=== PATIENT | female | born 1990 | race African-American/Black ===

== ENCOUNTER 2018-03-07 15:25 | Inpatient (IN) | payer OTHER ==
[2018-03-07] MEDS ORDERED: BUTORPHANOL TARTRATE 1 MG/ML VIAL IVPB ONE (16:30)
[2018-03-07] MEDS ORDERED: DEXTROSE 5%-LACTATED RINGERS 1,000 ML IV SCH (16:30)
[2018-03-07] MEDS ORDERED: PROMETHAZINE HCL 25 MG/1 ML VIAL IVPUSH ONE (16:30)
[2018-03-07] MEDS ORDERED: SODIUM PHOSPHATE/NA BIPHOS 133 ML ENEMA PR ONE (16:30)
--- NOTE | 2018-03-07 16:38 | HP ---
Past Medical History - Primary Care Physician PCP:: Roula Arndt - Admission Chief Complaint: 27 yrs , 40.3/7 weeks , onset LP since 2.00 PM . pt c/ o backache bothersome. she is broughtby ambulence . History of Present Illness: pNC at2, [facility] pt had wt loss in the beginning from 236 to 226, slowly she gained wt back to 231 lbs . 08/18/17 panel : O Pos, Hbsag neg, Rpr nr, , Rubella iimune, Hiv neg , Hgb S neg , urine c/s neg , CF screen neg, Papa :nilm, gc/ct neg 12/13/17 1hr GTT 124, rpr nr, quantiferon neg 02/14/18 h/h 11.5/34.3 , Plt 243, hiv nr , GBS neg, Gc/Ct neg pt c/o backache during pregn , c/o scitica like pain , she did not see physical therapist . h/o follow up with psychiatrist during regularly, last visit 2 weeks ago h/o Bronchial Asthma . Mistaken dates 08/23/17:-- 12.3 weeks , EDC assigned 03/04/18, confirmed by 16.3 weeks sono on nt screen & AFP screen neg serial sono for growth was done 02/07/18 sono : tony 11.8, efw 6'4"( 43%tile) , bpp8/8 , ant placenta History Source: Patient, Medical Record Limitations to Obtaining History: No Limitations - Past Medical History ENGLISH DRAWER: Yes: Peripheral Neuropathy (according to patient seconadry to hypothyroidism), Other (h/o rt side sciatica). No: Migraine Cardiovascular: No: HTN, Murmur Pulmonary: Yes: Asthma (last attack 2 weeks ago rx albuterol or ventolin inlaler, Flovent) Gastrointestinal: Yes: Constipation (rx senna & dulcolax), Hemorrhoids Renal/: No: UTI ...: 4 ...Para: 3 ...Term: 3 ...LMP: 05/16/17 ... Weeks Gestation by Dates: 42 ...EDC by Dates: 02/20/18 (mistaken dtes ) ...EDC by Sono: 03/04/18 (40.3 weeks ) Additional OB History: G1 05/07/13 7'12" girl --Epidural--[facility]. G2 7'6" girl --epidural , h/o sciatica [facility]. G3 09/25/16 TWINS Gestation Baby A Boy 7'6" , Baby B Boy 8'1" --Epidural at [facility] h/o sciatica , using chana & wheelchair during pregn Heme/Onc: Yes: Anemia Infectious Disease: No: AIDS, HIV, STD's, Tuberculosis Psych: Yes: Other (h/ PTSD , follow with psychiatrist regularly) Endocrine: Yes: Hypothyroidism (rx synthyroid 50 mcg , did not keep follow up visits) - Past Surgical History Past Surgical History: Yes: Hernia Repair (umblical at age 18 yrs) Hx Myomectomy: No Hx Transabdominal Cerclage: No - Smoking History Smoking history: Never smoked Have you smoked in the past 12 months: No - Alcohol/Substance Use Hx Alcohol Use: No History of Substance Use: reports: None - Social History History of Recent Travel: No Home Medications - Allergies Allergies/Adverse Reactions: Allergies Allergy/AdvReac Type Severity Reaction Status Date / Time penicillin G Allergy Severe Difficulty Verified 03/07/18 18:55 Breathing kiwi Allergy Severe Uncoded 03/07/18 18:56 - Home Medications Home Medications: Ambulatory Orders Albuterol Sulfate Inhaler - [Ventolin HFA Inhaler -] 2 puff IN PRN 03/07/18 Docusate Sodium [Dulcolax Stool Softener] 100 cap PO PRN 03/07/18 Levothyroxine Sodium [Synthroid] 88 mcg PO DAILY 03/07/18 Vits96/Iron Fum/Folic [ Tablet] 1 each PO DAILY 03/07/18 Sennosides [Senna] 2 tab PO BID 03/07/18 Physical Exam - Maternity Vital Signs: Selected Entries 03/07/18 16:41 Temperature 99.1 F Pulse Rate 97 H Respiratory 20 Rate Blood Pressure 128/86 Weight 231 lb Selected Entries 03/07/18 18:00 Temperature 98.3 F Pulse Rate 91 H Respiratory 20 Rate Blood Pressure 123/68 Constitutional: Yes: Well Nourished, Anxious, Moderate Distress, Obese Eyes: Yes: WNL HENT: Yes: WNL, Normocephalic Neck: Yes: WNL, Trachea Midline Cardiovascular: Yes: WNL, Regular Rate and Rhythm Lungs: Clear to auscultation Breast(s): Yes: WNL, Other (large breast). No: Mass - Abdominal Exam/OB Fundal Height: 40 Number of Fetuses: Single Presentation: Vertex Contractions: Yes Regularity: Irregular (5-9 min) Intensity: Mild/Mod Monitor Mode: External Heart Rate (range): 140 Heart Rate Location: [facility] Category: I Accelerations: Uniform Decelerations: None - Vaginal Exam/OB Vaginal Bleediing: No Dilatation (cm): 2 cm Effacement (%): 70 Amniotic Membrane Status: Intact Presentation: Vertex/Position Station: -3 - Physical Exam Musculoskeletal: Yes: WNL Extremities: Yes: WNL. No: Calf Tenderness Edema: LLE: 1+, RLE: 1+ Integumentary: Yes: Tattoos Deep Tendon Reflex Grade: Normal +2 ...Motor Strength: WNL Psychiatric: Yes: WNL, Alert, Oriented - Labs Lab Results: Laboratory Tests 03/07/18 03/07/18 03/07/18 16:50 16:50 16:50 RBC 3.95 Hgb 11.6 Hct 33.6 Plt Count 232 Neutrophils % 79.6 Lymphocytes % 14.3 Monocytes % 5.5 Eosinophils % 0.2 PT with INR 12.10 PTT (Actin FS) 27.8 Sodium 138 Potassium 3.8 Chloride 105 Carbon Dioxide 22 BUN 7 Creatinine 0.4 L Random Glucose 97 Laboratory Tests 03/07/18 16:50 Blood Type O POSITIVE Antibody Screen Negative Problem List - Problems (1) Post term over 40 weeks Code(s): O48.0 - POST-TERM (2) Labor established Code(s): GEP4656 - (3) Obesity affecting , antepartum Code(s): O99.210 - OBESITY COMPLICATING , UNSPECIFIED TRIMESTER (4) Hypothyroidism affecting Code(s): O99.280 - ENDO, NUTRITIONAL AND METAB DISEASES COMP PREG, UNSP TRI; E03.9 - HYPOTHYROIDISM, UNSPECIFIED Assessment/Plan 27 yrs , 40 .3 weeks, early labor , GBS neg h/o Hypthyroidism, : h/o Asthma, h/o PTSD Plan : ct trial of labor may ambulate Pitocin augmentation prn epidural analgesia requests
[2018-03-07 17:24] VITALS: BMI 40.9
[2018-03-07 17:46] LABS: BASO % 0.4 % (0-2.0); EOS % 0.2 % (0-4.5); HEMATOCRIT 33.6 % (32.4-45.2); HEMOGLOBIN 11.6 GM/dL (10.7-15.3); LYMPH % 14.3 % (8-40); MCH 29.4 pg (25.7-33.7); MCHC 34.6 g/dl (32.0-36.0); MEAN PLT VOLUME 9.8 fl (7.5-11.1); MONO % 5.5 % (3.8-10.2); NEUT % 79.6 % (42.8-82.8); PLATELET COUNT 232 K/MM3 (134-434); RBC 3.95 M/mm3 (3.60-5.2); RDW 14.4 % (11.6-15.6); WHITE BLOOD COUNT 7.9 K/mm3 (4.0-10.0)
[2018-03-07 18:06] LABS: INR 1.03 (0.83-1.09); PROTHROMBIN TIME (PATIENT) 12.1 SEC (9.7-13.0)
[2018-03-07 18:09] LABS: ACTIVATED PTT 27.8 SECONDS (25.2-36.5)
[2018-03-07 18:13] LABS: ANION GAP 10 MMOL/L (8-16); BLOOD UREA NITROGEN 7 mg/dL (7-18); CALCIUM 9.2 mg/dL (8.5-10.1); CHLORIDE 105 mmol/L (98-107); CO2 22 mmol/L (21-32); CREATININE 0.4 mg/dL (0.55-1.3); GLUCOSE,RANDOM 97 mg/dL (74-106); POTASSIUM 3.8 mmol/L (3.5-5.1); SODIUM 138 mmol/L (136-145)
[2018-03-07] MEDS ORDERED: OXYTOCIN 30 UNITS in 0.9% NS 30 UNIT/500 ML INFUS.BAG IVPB SCH (18:45)
[2018-03-07] MEDS ORDERED: OXYTOCIN 30 UNITS in 0.9% NS 30 UNIT/500 ML INFUS.BAG IVPB ONE (19:38)
--- NOTE | 2018-03-07 20:56 | PN ---
Progress Note, Labor Vaginal Exam #1 Labor Exam Date: 03/07/18 Labor Exam Time: 20:45 Heart Rate (range): 145-150 Dilatation: 3 Effacement (%): 70 Amniotic Membrane Status: Intact Presentation: Vertex/Position Station: -2 (-3/-2) Remarks: fhr cat-1 uc are irregular -4-7 min Pitocin augmentation was started at 19.45 hr presently Pitocin 2ml/hr Selected Entries 03/07/18 19:51 Pulse Rate 89 Blood Pressure 132/[address] trial of labor epidural when pt uncomfortable. Vaginal Exam #2 Labor Exam Date: 03/07/18 Labor Exam Time: 22:40 Heart Rate (range): 145-150 Dilatation: 3 Effacement (%): 70 Amniotic Membrane Status: Intact Presentation: Vertex/Position Station: -3 (-3/-2) Remarks: fhr cat-1 uc 2-4-5 epidural taken at 22.15 hr pitocin 6 ml/hr Selected Entries 03/07/18 22:35 Pulse Rate 106 H Blood Pressure 123/89 Vaginal Exam #3 Labor Exam Date: 03/08/18 Labor Exam Time: 01:35 Heart Rate (range): 140-145 Dilatation: 6 Effacement (%): 90 Amniotic Membrane Status: Ruptured (AROM scanty, light mec) Presentation: Vertex/Position Station: -1 Remarks: FHR cat-1 uc 2-3 min pit 6ml/hr Selected Entries 03/08/18 00:15 Pulse Rate 85 Blood Pressure 117/72 Vaginal Exam #4 Labor Exam Date: 03/08/18 Labor Exam Time: 02:35 Heart Rate (range): 120-140 Dilatation: 10 Effacement (%): 100 Amniotic Membrane Status: Ruptured Presentation: Vertex/Position Station: +1 Remarks: fhr early decel uc 2 min pt pushing Selected Entries 03/08/18 01:30 Pulse Rate 85 Respiratory 18 Rate Blood Pressure 115/65
[2018-03-07] MEDS ORDERED: FENTANYL/BUPIVACAINE/NS/PF - PCEA - 50 ML DISP.SYRIN EP ONE (21:48)
[2018-03-07] MEDS ORDERED: BUPIVACAINE HCL/PF 0.25% (2.5MG/ML) 10 ML VIAL ONE (21:50)
[2018-03-07] MEDS ORDERED: NALOXONE HCL 0.4 MG/ML VIAL IVPUSH PRN (22:16)
[2018-03-07] MEDS ORDERED: FENTANYL/BUPIVACAINE/NS/PF - PCEA - 50 ML DISP.SYRIN EP SCH (22:30)
[2018-03-07] MEDS ORDERED: ELECTROLYTE-148 SOLN 1,000 ML IV SCH (23:15)
[2018-03-08] MEDS ORDERED: BUPIVACAINE HCL/PF 0.25% (2.5MG/ML) 10 ML VIAL ONE (00:58)
[2018-03-08] MEDS ORDERED: FENTANYL/BUPIVACAINE/NS/PF - PCEA - 50 ML DISP.SYRIN EP ONE (01:22)
[2018-03-08] MEDS ORDERED: OXYTOCIN 20 UNITS in 0.9% NS 20 UNIT/1,000 ML INFUS.BAG IV ONE ×2 (02:37→05:06)
[2018-03-08] MEDS ORDERED: WITCH HAZEL 50% (TUCKS) 40 PAD/JAR PAD TP PRN (03:03)
[2018-03-08] MEDS ORDERED: oxyCODONE HCL 5 MG TABLET PO PRN (03:03)
[2018-03-08] MEDS ORDERED: BISACODYL 10 MG SUPP.RECT RC PRN (03:03)
[2018-03-08] MEDS ORDERED: METHYLERGONOVINE MALEATE 0.2 MG/1 ML AMP IM PRN (03:03)
[2018-03-08] MEDS ORDERED: BENZOCAINE 28 GM HEMORRHOIDAL OINTMENT TP PRN (03:03)
[2018-03-08] MEDS ORDERED: BENZOCAINE 20% 57 GM BOTTLE TP PRN (03:03)
--- NOTE | 2018-03-08 03:17 | PN ---
Delivery - Delivery Vaginal Delivery: No Problems, Spontaneous (baby Vx presentation, CATRINA position delievered , immediate oral & nasal suction done at perineum . shoulders delievered without problem . perineum & vagina intact sponge count correct) Type of Anesthesia: Epidural EBL (cc): 300 Delivery, Single - Stages of Labor Date 1st Stage Initiatied: 03/07/18 Time 1st Stage Initiated: 14:00 Date 2nd Stage Initiated: 03/08/18 Time 2nd Stage Initiated: 02:35 Date of Delivery: 03/08/18 Time of Delivery: 02:48 Date Placenta Delivered: 03/08/18 Time Placenta Delivered: 02:52 Placenta: Yes: Spontaneous, Uterine Exploration - Condition of Infant Fire Engine Operator/Ticket Sales Agent Present: Yes Name: Alfredo Killian Infant Gender: Female Weight: 8 lb 13 oz Position: Right, OA Total Hours ROM (Hrs/Mins): 1hr,22min light mec - 1 Minute Total Score: 9 5 Minutes Total Score: 9 - Rembrandt Feeding Plan Initial Plan: Elected not to breastfeed exclusively throughout hospitalization Remarks - Remarks Remarks: 27 yrs , 40.3 weeks admitted in labor gbs neg pnc 2, [facility] Pitocin augmentation given Intrapartum course uneventful
[2018-03-08 03:41] LABS: VENOUS PC02 45.6 mmHg (38-52); VENOUS PH 7.34 (7.32-7.42); VENOUS PO2 25.8 mmHg (28-48)
[2018-03-08 03:44] LABS: ARTERIAL BLD GAS O2 SATURATION 36.7 % (90-98.9); ARTERIAL BLOOD GAS BASE EXCESS -1.3 meq/l (-2-2); ARTERIAL BLOOD GAS PCO2 52.4 mmHg (35-45); ARTERIAL BLOOD GAS pH 7.31 (7.35-7.45)
[2018-03-08 04:02] LABS: ARTERIAL BLOOD GAS PO2 22.1 mmHg (80-100)
[2018-03-08] MEDS ORDERED: LEVOTHYROXINE NA 50 MCG TABLET (FP) PO ONE (05:30)
[2018-03-08] MEDS: FERROUS SO4 325 MG TABLET (FP) PO SCH ×2 (08:25→17:46)
[2018-03-08] MEDS: ACETAMINOPHEN 325 MG TABLET (FP) PO PRN ×3 (08:25→21:29)
[2018-03-08] MEDS: IBUPROFEN 600 MG TABLET (FP) PO PRN ×3 (08:25→21:30)
[2018-03-08] MEDS ORDERED: ALBUTEROL SO4 8 GM HFA INHALER IH PRN (09:53)
[2018-03-08] MEDS: PRENATAL VITAMINS W/ FOLIC ACID TABLET (FP) PO SCH (10:02)
[2018-03-09] MEDS: ACETAMINOPHEN 325 MG TABLET (FP) PO PRN ×4 (06:36→21:17)
[2018-03-09] MEDS: IBUPROFEN 600 MG TABLET (FP) PO PRN ×4 (06:36→21:16)
[2018-03-09 07:19] LABS: BASO % 0.2 % (0-2.0); EOS % 0.8 % (0-4.5); HEMATOCRIT 30.7 % (32.4-45.2); HEMOGLOBIN 10.5 GM/dL (10.7-15.3); LYMPH % 29.5 % (8-40); MCH 29.4 pg (25.7-33.7); MCHC 34.2 g/dl (32.0-36.0); MEAN CELL VOLUME 85.9 fl (80-96); MEAN PLT VOLUME 9.3 fl (7.5-11.1); MONO % 7.6 % (3.8-10.2); NEUT % 61.9 % (42.8-82.8); PLATELET COUNT 196 K/MM3 (134-434); RBC 3.57 M/mm3 (3.60-5.2); RDW 14.3 % (11.6-15.6); WHITE BLOOD COUNT 5.8 K/mm3 (4.0-10.0)
--- NOTE | 2018-03-09 07:29 | PN ---
Post Progress Note Type of Delivery: Vital Signs: Vital Signs Temperature 98.4 F 03/09/18 06:00 Pulse Rate 86 03/09/18 06:00 Respiratory Rate 20 03/09/18 06:00 Blood Pressure 125/78 03/09/18 06:00 O2 Sat by Pulse Oximetry (%) 100 03/08/18 03:45 Uterus: Yes: Fundus Firm, Fundus below umbilicus Abdomen/GI: Yes: Abdomen soft Lochia: Yes: Rubra Lochia, amount: Small Extremities: Yes: Calves non-tender Perineum: Yes: Intact Activity: Ambulating - Labs Labs: CBC WBC 5.8 K/mm3 (4.0-10.0) 03/09/18 06:30 RBC 3.57 M/mm3 (3.60-5.2) L 03/09/18 06:30 Hgb 10.5 GM/dL (10.7-15.3) L 03/09/18 06:30 Hct 30.7 % (32.4-45.2) L 03/09/18 06:30 MCV 85.9 fl (80-96) 03/09/18 06:30 MCH 29.4 pg (25.7-33.7) 03/09/18 06:30 MCHC 34.2 g/dl (32.0-36.0) 03/09/18 06:30 RDW 14.3 % (11.6-15.6) 03/09/18 06:30 Plt Count 196 K/MM3 (134-434) 03/09/18 06:30 MPV 9.3 fl (7.5-11.1) 03/09/18 06:30 Absolute Neuts (auto) 3.6 K/mm3 (1.5-8.0) 03/09/18 06:30 Neutrophils % 61.9 % (42.8-82.8) D 03/09/18 06:30 Lymphocytes % 29.5 % (8-40) D 03/09/18 06:30 Monocytes % 7.6 % (3.8-10.2) 03/09/18 06:30 Eosinophils % 0.8 % (0-4.5) D 03/09/18 06:30 Basophils % 0.2 % (0-2.0) 03/09/18 06:30 Nucleated RBC % 0 % (0-0) 03/09/18 06:30 Assessment/Plan 27yo s/p , PPD#1 Routine PP care OOB, ambulate Labs reviewed, Anticipate D/C to home by PPD#2
[2018-03-09] MEDS: FERROUS SO4 325 MG TABLET (FP) PO SCH ×2 (08:27→17:19)
[2018-03-09] MEDS: PRENATAL VITAMINS W/ FOLIC ACID TABLET (FP) PO SCH (09:16)
[2018-03-09] MEDS ORDERED: SENNOSIDES/DOCUSATE COMBO (SENNA PLUS) TABLET (UD) PO PRN (22:00)
[2018-03-10] MEDS: OXYTOCIN 20 UNITS in 0.9% NS 20 UNIT/1,000 ML INFUS.BAG IV SCH ×2 (03:30→03:37)
--- NOTE | 2018-03-10 08:08 | PN ---
Progress Note (short form) - Note Progress Note: ppd 2 no c/o ,no excess vaginal bleeding CBC, BMP 03/09/18 06:30 03/07/18 16:50 Last Vital Signs Temp Pulse Resp BP Pulse Ox 98.9 F 95 H 20 117/59 L 100 03/09/18 21:28 03/09/18 21:28 03/09/18 21:28 03/09/18 21:28 03/08/18 03:45 abdomen soft, uterus firm, non tender lochia mild no calf tenderness plan d/c home , follow up [facility] care 4 weeks, instruction given
[2018-03-10 08:51] VITALS: BP 127/79; PULSE 77; TEMP 98.8
[2018-03-10] MEDS: FERROUS SO4 325 MG TABLET (FP) PO SCH (09:00)
[2018-03-10] MEDS: PRENATAL VITAMINS W/ FOLIC ACID TABLET (FP) PO SCH (09:54)
[2018-03-10] MEDS: ACETAMINOPHEN 325 MG TABLET (FP) PO PRN (11:26)
--- NOTE | 2018-03-10 19:09 | DS ---
Physical Exam-MEN'S DESIGNER Vital Signs: Vital Signs Temperature 98.8 F 03/10/18 08:43 Pulse Rate 77 03/10/18 08:43 Respiratory Rate 20 03/10/18 08:43 Blood Pressure 127/79 03/10/18 08:43 O2 Sat by Pulse Oximetry (%) 100 03/08/18 03:45 Constitutional: Yes: Well Nourished, Obese Eyes: Yes: WNL HENT: Yes: WNL, Normocephalic Neck: Yes: WNL Cardiovascular: Yes: WNL, Regular Rate and Rhythm Respiratory: Yes: WNL, Regular, CTA Bilaterally Gastrointestinal: Yes: WNL, Normal Bowel Sounds ...Rectal Exam: Yes: WNL Renal/: Yes: WNL. No: CVA Tenderness - Left, CVA Tenderness - Right ....Post : Yes: Uterus firm, Uterus non-tender, Moderate lochia rubra ( perineum intat) Breast(s): Yes: WNL (breast feeding breast not engorged) Musculoskeletal: Yes: WNL Extremities: Yes: WNL. No: Calf Tenderness Edema: LLE: 1+, RLE: 1+ Integumentary: Yes: Tattoos Neurological: Yes: WNL, Alert, Oriented ...Motor Strength: WNL Psychiatric: Yes: WNL, Alert, Oriented, Other (will ct follow up with her psychiatrist at [facility] in [place]) Labs: CBC, BMP 03/09/18 06:30 03/07/18 16:50 Delivery - Delivery Vaginal Delivery: No Problems, Spontaneous (baby Vx presentation, CATRINA position delievered , immediate oral & nasal suction done at perineum . shoulders delievered without problem . perineum & vagina intact sponge count correct) Type of Anesthesia: Epidural Episiotomy/Laceration: None EBL (cc): 300 Delivery, Single - Stages of Labor Date 1st Stage Initiatied: 03/07/18 Time 1st Stage Initiated: 14:00 Date 2nd Stage Initiated: 03/08/18 Time 2nd Stage Initiated: 02:35 Date of Delivery: 03/08/18 Time of Delivery: 02:48 Time Placenta Delivered: 02:52 Placenta: Yes: Spontaneous, Uterine Exploration - Condition of Test Kitchen Home Economist/Direct Customer Service Representative Present: [place]: Alfredo Killian Infant Gender: Female Weight: 8 lb 13 oz Position: Right, OA Total Hours ROM (Hrs/Mins): 1hr,22min light mec - 1 Minute Total Score: 9 5 Minutes Total Score: 9 - Feeding Plan Initial Plan: Elected not to breastfeed exclusively throughout hospitalization Remarks - Remarks Remarks: 27 yrs , 40.3 weeks admitted in labor gbs neg pnc 2, [facility] Pitocin augmentation given Intrapartum course uneventful . post course uneventful. discharged today by Dr Arreola Discharge Summary Reason For Visit: LABOR ADMISSION Condition: Stable - Instructions Diet, Activity, Other Instructions: Post Instructions DIET: Continue good diet high in protein, calcium, and iron rich foods. Drink at least eight (8) glasses of water daily in addition to other fluids. ct Regular diet MEDICATIONS: Continue vitamins and iron as previously directed. Motrin and Tylenol may be taken for minor discomfort. ACTIVITY: Mild to moderate exercise may be started in two (2) weeks. Take frequent rest periods. Resume normal activity after six (6) week check up. WOUND CARE OF OPERATIVE SITE: Continue use of perineal bottle until vaginal discharge stops. Keep area clean. Shower daily. Keep abdominal wound dry. Report any drainage or redness to physician. Tub baths, tampons and douches are not permitted for [address] Breast feeding & or Bottle feeding BREAST CARE: (For those that are not ): If engorgement occurs: Wear tight fitting bra. Take Tylenol or Motrin for pain. Apply cold packs (ice in bags to each breast ) FAMILY PLANNING: There are many control alternatives to pursue and they should be discussed at your first office visit. You may resume sexual activity after your six (6) week check up. (Remember, breast feeding is not a contraceptive) NEXT PHYSICIAN APPOINTMENT: Be certain to call for a four- six (4-6) week appointment, unless otherwise directed. CONTINUE FOLLOW UP WITH YOUR PSYCHIATRIST & OR MENTAL HEALTH PROVIDER Call Clinic or got to Emergency Dept if you have any of the following: Heavy vaginal bleeding Painful urination Leg pain Unusual odor noted to vaginal bleeding High fever Red streaking noted on breast Referrals: Roula Arndt MD [Staff Physician] - Disposition: HOME - Home Medications Comprehensive Discharge Medication List: Ambulatory Orders Albuterol Sulfate Inhaler - [Ventolin HFA Inhaler -] 2 puff IN PRN 03/07/18 Docusate Sodium [Dulcolax Stool Softener] 100 cap PO PRN 03/07/18 Levothyroxine Sodium [Synthroid] 88 mcg PO DAILY 03/07/18 Vits96/Iron Fum/Folic [ Tablet] 1 each PO DAILY 03/07/18 Sennosides [Senna] 2 tab PO BID 03/07/18 Acetaminophen [Tylenol .Regular Strength -] 650 mg PO Q3H PRN tablet 03/08/18 Ibuprofen [Motrin -] 600 mg PO Q4H PRN #20 tablet 03/08/18 Vitamins (Sjr) - 1 tab PO DAILY tablet 03/08/18 Sennosides/Docusate Sodium [Pericolace -] 2 tablet PO HS PRN tablet 03/08/18
== END 2018-03-10 13:33 | disposition home or self-care (01) | DRG 560 ==
LOC: JLDR 15:25 → J3W 03-08 05:17
PROVIDERS: ADMIT Obstetrics & Gynecology; ATTEND Obstetrics & Gynecology
PROC: 10E0XZZ Delivery of Products of Conception, External Approach (ICD-10-PCS; principal; 2018-03-08)
DX: O48.0 Post-term pregnancy (principal); O99.283 Endocrine, nutritional and metabolic diseases complicating pregnancy, third trimester; E03.9 Hypothyroidism, unspecified; O26.893 Other specified pregnancy related conditions, third trimester; M54.31 Sciatica, right side; J45.909 Unspecified asthma, uncomplicated; F43.10 Post-traumatic stress disorder, unspecified; Z3A.40 40 weeks gestation of pregnancy; Z37.0 Single live birth
CPT/HCPCS: 36415; 36600; 59409; 80048; 82803; 85025; 85610; 85730; 86593; 86850; 86900; 86901

== ENCOUNTER 2018-04-12 22:49 | Emergency (ER) | payer OTHER | END 2018-04-12 22:55 | disposition left against medical advice (07) | LOC: JER 22:49 | DX: Z53.21 Procedure and treatment not carried out due to patient leaving prior to being seen by health care provider (principal) | CPT/HCPCS: 99281-25 ==

== ENCOUNTER 2018-05-23 15:50 | Emergency (ER) | payer OTHER ==
[2018-05-23 16:35] VITALS: BP 136/78; PULSE 76; TEMP 98.8; BMI 25.3
[2018-05-23] MEDS ORDERED: SODIUM CHLORIDE 0.9% 1000 ML INFUS.BAG IV ONE (17:29)
--- NOTE | 2018-05-23 17:33 | PDOC ---
Attending Attestation - Resident Resident Name: Greg Pena - ED Attending Attestation I have performed the following: I have examined & evaluated the patient, The case was reviewed & discussed with the resident, I agree w/resident's findings & plan, Exceptions are as noted - HPI HPI: 05/23/18 17:29 27 yo F 2 months post partm vaginal delivery had normal period 2/ - 05/01 normal period - 05/04, iud placed Mirena, then had intercourse and has been bleeding ever since. she felt a pulling sensation when she lifted her baby. can feel the IUd hanging low in the vagina. also c/o feeling dizzy, lightheaded. no headache. no sob. - Physicial Exam PE: 05/23/18 17:32 on exam awake alert lungs clear bilaterally heart reg no mrg abd soft mild suprapubic ttp. - Medical Decision Making 05/23/18 17:32 differential anemia, retained products. trauma, iud partial removal. plan labs type and screen. will obtain cbc type and screen ivf. and us. IUD placed by Paz Ann. 05/23/18 18:48 d/w dr Ellis states dysfunctional bleed is normal after iud placement. h/h stable. pt us with IUD in place. given 1L NS. tylenol for pain as is breast feeding. recommend fu with Paz Ann .
--- NOTE | 2018-05-23 17:37 | PDOC ---
History of Present Illness <Mckenzie Granado - Last Filed: 05/23/18 18:47> - General History Source: Patient Exam Limitations: No Limitations - History of Present Illness Initial Comments: 05/23/18 17:31 The patient is a 27F, 2 months post-, who presents to the ER with complaints of vaginal bleeding. The patient states that she had a normal period which ended on 05/01/18. On 05/04/18, she had a Mirena IUD placed. 2 days after, she had intercourse and noted some bleeding. A few days after this, she states that she was picking up her child and felt like her uterine was prolapsing. She admits to vaginal bleeding x 17 days with intermittent heaviness and clots. She also admits to generalized weakness. She denies CP, SOB, fever, chills, nausea, vomiting. <Greg Pena - Last Filed: 05/23/18 19:00> - General Chief Complaint: Vaginal Bleeding Stated Complaint: Vaginal Bleeding Time Seen by Provider: 05/23/18 16:38 Past History <Mckenzie Granado - Last Filed: 05/23/18 18:47> - Past Medical History Asthma: Yes Cancer: No Cardiac Disorders: No COPD: No Diabetes: No HTN: No Seizures: No Thyroid Disease: Yes (hypothyroid) - Immunization History Immunization Up to Date: Yes - Suicide/Smoking/Psychosocial Hx Smoking History: Never smoked Have you smoked in the past 12 months: No Information on smoking cessation initiated: No Hx Alcohol Use: No Drug/Substance Use Hx: No Hx Substance Use Treatment: No <Greg Pena - Last Filed: 05/23/18 19:00> - Past Medical History Allergies/Adverse Reactions: Allergies Allergy/AdvReac Type Severity Reaction Status Date / Time penicillin G Allergy Severe Difficulty Verified 05/23/18 16:35 Breathing kiwi Allergy Severe Uncoded 05/23/18 16:35 Home Medications: Ambulatory Orders Albuterol Sulfate Inhaler - [Ventolin HFA Inhaler -] 2 puff IN PRN 03/07/18 Levothyroxine Sodium [Synthroid] 88 mcg PO DAILY 03/07/18 Review of Systems - Review of Systems Able to Perform ROS?: Yes Comments:: 05/23/18 17:58 GENERAL/CONSTITUTIONAL: Positive for generalized weakness. No fever or chills. HEAD, EYES, EARS, NOSE AND THROAT: No change in vision. No ear pain or discharge. No sore throat. CARDIOVASCULAR: No chest pain, palpitations, or lightheadedness. RESPIRATORY: No cough, wheezing, shortness of breath, or hemoptysis. GASTROINTESTINAL: No nausea, vomiting, diarrhea, constipation, or abdominal pain. GENITOURINARY: Positive for vaginal bleeding and uterine prolapse sensation. No dysuria, frequency, hematuria, or change in urination. MUSCULOSKELETAL: No joint or muscle swelling or pain. No neck or back pain. SKIN: No rash or lesions. NEUROLOGIC: No headache, numbness, tingling, focal weakness, loss of consciousness, or change in strength/sensation. Is the patient limited [place] proficient: No <Greg Pena - Last Filed: 05/23/18 19:00> *Physical Exam - Vital Signs Last Vital Signs Temp Pulse Resp BP Pulse Ox 98.8 F 76 16 136/78 100 05/23/18 16:29 05/23/18 16:29 05/23/18 16:29 05/23/18 16:29 05/23/18 16:29 <Mckenzie Granado - Last Filed: 05/23/18 18:47> - Vital Signs Last Vital Signs Temp Pulse Resp BP Pulse Ox 98.8 F 76 16 136/78 100 05/23/18 16:29 05/23/18 16:29 05/23/18 16:29 05/23/18 16:29 05/23/18 16:29 - Physical Exam Comments: 05/23/18 17:59 GENERAL: Well developed, well nourished. Awake and alert. No acute distress. HEENT: Normocephalic, atraumatic. Hearing grossly normal. Moist mucous membranes. PERRLA, EOMI. No conjunctival pallor. NECK: Supple. Full ROM. No JVD. CARDIOVASCULAR: Regular rate and rhythm. No murmurs, rubs, or gallops. PULMONARY: No evidence of respiratory distress. Lungs clear to auscultation bilaterally. No wheezing, rales or rhonchi. ABDOMINAL: Soft. Non-tender. Non-distended. No rebound or guarding. PELVIC: Normal external genitalia. Blood clot noted in vaginal vault. Long strings of IUD noted coming from cervix. MUSCULOSKELETAL: Normal range of motion at all joints. No bony deformities or tenderness. EXTREMITIES: No cyanosis. No clubbing. No edema. No calf tenderness or swelling. SKIN: Warm and dry. Normal capillary refill. No rashes. No jaundice. NEUROLOGICAL: Alert, awake, appropriate. Cranial nerves 2-12 grossly intact. Normal speech. Gait is normal without ataxia. PSYCHIATRIC: Cooperative. Good eye contact. Appropriate mood and affect. <Greg Pena - Last Filed: 05/23/18 19:00> Moderate Sedation - Procedure Monitoring Vital Signs: Procedure Monitoring Vital Signs Temperature 98.8 F 05/23/18 16:29 Pulse Rate 76 05/23/18 16:29 Respiratory Rate 16 05/23/18 16:29 Blood Pressure 136/78 05/23/18 16:29 O2 Sat by Pulse Oximetry (%) 100 05/23/18 16:29 <Mckenzie Granado - Last Filed: 05/23/18 18:47> - Procedure Monitoring Vital Signs: Procedure Monitoring Vital Signs Temperature 98.8 F 05/23/18 16:29 Pulse Rate 76 05/23/18 16:29 Respiratory Rate 16 05/23/18 16:29 Blood Pressure 136/78 05/23/18 16:29 O2 Sat by Pulse Oximetry (%) 100 05/23/18 16:29 <Greg Pena - Last Filed: 05/23/18 19:00> ED Treatment Course - LABORATORY CBC & Chemistry Diagram: 05/23/18 18:04 05/23/18 18:04 - ADDITIONAL ORDERS Additional order review: Laboratory Results 05/23/18 18:04 PT with INR 12.60 INR 1.07 05/23/18 18:04 RBC 4.14 MCV 85.0 MCHC 34.7 RDW 15.0 MPV 8.5 Neutrophils % 58.6 Lymphocytes % 33.8 Monocytes % 5.9 Eosinophils % 1.3 Basophils % 0.4 - Medications Given in the ED: ED Medications Discontinued Medications Generic Name Dose Route Start Last Admin Trade Name Freq PRN Reason Stop Dose Admin Sodium Chloride 1,000 ml 05/23/18 17:29 05/23/18 18:16 Normal Saline - IV 05/23/18 17:30 1,000 ml ONCE ONE Administration <Mckenzie Granado - Last Filed: 05/23/18 18:47> - LABORATORY CBC & Chemistry Diagram: 05/23/18 18:04 05/23/18 18:04 <Greg Pena - Last Filed: 05/23/18 19:00> Medical Decision Making - Medical Decision Making 05/23/18 18:02 The patient is a 27F , 2 months post who presents with 17 days of vaginal bleeding and concomitant weakness. Concern for anemia 2/2 bleeding. PE unremarkable, including pelvic exam chaperoned by Dr. Granado. Pending labs and US. 05/23/18 18:36 Case d/w Dr. Arndt who states that the patient should continue and vitamins with rest. ext [phone] Pending CMP. Will give instructions to patient. 05/23/18 18:42 Preliminary read of U/S shows IUD in place in uterus. 05/23/18 19:00 CMP WNL. Will d/c with PCP f/u. <Greg Pena - Last Filed: 05/23/18 19:00> *DC/Admit/Observation/Transfer <Mckenzie Grandao - Last Filed: 05/23/18 18:47> - Discharge Dispostion Decision to Admit order: No <Greg Pena - Last Filed: 05/23/18 19:00> Diagnosis at time of Disposition: Vaginal bleeding - Discharge Dispostion Disposition: HOME Condition at time of disposition: Stable - Patient Instructions Printed Discharge Instructions: DI for Vaginal Bleeding Additional Instructions: Please follow up with your TALK SHOW HOST in 1-2 days. Please return to the ER with worsening weakness, lightheadedness, fever, chills, nausea, vomiting, or worsening bleeding. Take some time to rest and relax, continue , and continue taking your vitamins. Please return to the ER if you have any signs or symptoms of chest pain, shortness of breath, uncontrollable fever, chills, nausea, vomiting, numbness, tingling, or weakness in any part of your body, changes in vision, or slurred speech.
[2018-05-23 18:20] LABS: BASO % 0.4 % (0-2.0); EOS % 1.3 % (0-4.5); HEMATOCRIT 35.1 % (32.4-45.2); HEMOGLOBIN 12.2 GM/dL (10.7-15.3); LYMPH % 33.8 % (8-40); MCH 29.5 pg (25.7-33.7); MCHC 34.7 g/dl (32.0-36.0); MEAN PLT VOLUME 8.5 fl (7.5-11.1); MONO % 5.9 % (3.8-10.2); NEUT % 58.6 % (42.8-82.8); PLATELET COUNT 290 K/MM3 (134-434); RBC 4.14 M/mm3 (3.60-5.2)
[2018-05-23] MEDS ORDERED: KETOROLAC TROMETHAMINE 30 MG/1 ML VIAL IVPUSH ONE (18:41)
[2018-05-23 18:43] LABS: INR 1.07 (0.83-1.09); PROTHROMBIN TIME (PATIENT) 12.6 SEC (9.7-13.0)
[2018-05-23] MEDS ORDERED: ACETAMINOPHEN 1000 MG/100 ML VIAL (NON FORMULARY) IVPB ONE (18:45)
[2018-05-23] MEDS ORDERED: KETOROLAC TROMETHAMINE 15 MG/ML VIAL ONE (18:46)
[2018-05-23 18:49] LABS: ALBUMIN 4.2 g/dl (3.4-5.0); ALK PHOS 59 U/L (45-117); ANION GAP 5 MMOL/L (8-16); BILIRUBIN,TOTAL 0.4 mg/dL (0.2-1); BLOOD UREA NITROGEN 14 mg/dL (7-18); CALCIUM 9.7 mg/dL (8.5-10.1); CHLORIDE 107 mmol/L (98-107); CO2 28 mmol/L (21-32); CREATININE 0.5 mg/dL (0.55-1.3); GLUCOSE,RANDOM 95 mg/dL (74-106); POTASSIUM 4.3 mmol/L (3.5-5.1); SGOT/AST 16 U/L (15-37); SGPT/ALT 26 U/L (13-61); SODIUM 141 mmol/L (136-145); TOT PROT 8.3 g/dl (6.4-8.2)
== END 2018-05-23 20:30 | disposition home or self-care (01) ==
LOC: JER 15:50
DX: N93.8 Other specified abnormal uterine and vaginal bleeding (principal)
CPT/HCPCS: 36415; 76830-TC; 80053; 84703; 85025; 85610; 99283-25; J0131; J7030

== ENCOUNTER 2018-07-19 11:52 | Emergency (ER) | payer OTHER ==
[2018-07-19 11:59] VITALS: BP 116/69; PULSE 77; TEMP 98.5; BMI 48.6
[2018-07-19] MEDS ORDERED: ACETAMINOPHEN 500 MG TABLET (FP) PO ONE (13:08)
[2018-07-19] MEDS ORDERED: ACETAMINOPHEN 500 MG TABLET (FP) ONE (13:13)
--- NOTE | 2018-07-19 13:15 | PDOC ---
History of Present Illness - General Chief Complaint: Injury Stated Complaint: RT HIP PAIN Time Seen by Provider: 07/19/18 12:56 History Source: Patient Exam Limitations: No Limitations - History of Present Illness Initial Comments: 07/19/18 13:10 28 yo F here for evaluation of right hip pain s/p slip and fall last night. Pt states she was walking across a wet floor when she slipped and landed on her right hip. Pt has been ambulatory since fall. Occurred: reports: yesterday Severity: reports: severe (11/04) Pain Location: reports: lower extremity Method of Injury: Yes: fall Modifying Factors: improves with: None Loss of Consciousness: no loss of consciousness Past History - Past Medical History Allergies/Adverse Reactions: Allergies Allergy/AdvReac Type Severity Reaction Status Date / Time penicillin G Allergy Severe Difficulty Verified 07/19/18 11:58 Breathing kiwi Allergy Severe Uncoded 07/19/18 11:58 Home Medications: Ambulatory Orders Albuterol Sulfate Inhaler - [Ventolin HFA Inhaler -] 2 puff IN PRN 03/07/18 Levothyroxine Sodium [Synthroid] 88 mcg PO DAILY 03/07/18 Asthma: Yes Cancer: No Cardiac Disorders: No COPD: No Diabetes: No HTN: No Seizures: No Thyroid Disease: Yes (hypothyroid) - Reproductive History (#): 5 Para: 4 - Immunization History Immunization Up to Date: Yes - Suicide/Smoking/Psychosocial Hx Smoking History: Never smoked Have you smoked in the past 12 months: No Information on smoking cessation initiated: No Hx Alcohol Use: No Drug/Substance Use Hx: No Hx Substance Use Treatment: No Review of Systems - Review of Systems Able to Perform ROS?: Yes Is the patient limited Gambian proficient: No Constitutional: No: Symptoms Reported HEENTM: No: Symptoms Reported Respiratory: No: Symptoms reported Cardiac (ROS): No: Symptoms Reported ABD/GI: No: Symptoms Reported : No: Symptoms Reported Musculoskeletal: Yes: See HPI Integumentary: No: Symptoms Reported Neurological: No: Symptoms reported Endocrine: No: Symptoms Reported Hematologic/Lymphatic: No: Symptoms Reported *Physical Exam - Vital Signs Last Vital Signs Temp Pulse Resp BP Pulse Ox 98.5 F 77 17 116/69 98 07/19/18 11:56 07/19/18 11:56 07/19/18 11:56 07/19/18 11:56 07/19/18 11:56 - Physical Exam General Appearance: Yes: Appropriately Dressed. No: Apparent Distress HEENT: positive: Normal ENT Inspection Respiratory/Chest: positive: Lungs Clear, Normal Breath Sounds. negative: Respiratory Distress, Accessory Muscle Use Cardiovascular: positive: Regular Rhythm, Regular Rate. negative: Edema, Murmur Musculoskeletal: positive: Normal Inspection. negative: CVA Tenderness Extremity: positive: Normal Capillary Refill, Normal Inspection, Normal Range of Motion, Tender (over right trochanter and right mid thigh. No deformity or shortening of RLE. NVI.) Integumentary: positive: Normal Color, Dry, Warm ED Treatment Course - RADIOLOGY Radiology Studies Ordered: Category Date Time Status HIP & PELVIS-RIGHT [RAD] Stat Radiology 07/19/18 13:08 Ordered Medical Decision Making - Medical Decision Making 07/19/18 13:14 A/P: 28yo F with RLE pain s/p slip and fall TTP over right trochanter and right mid-thigh. No shortening or rotation of RLE. Pelvis stable NVI Cap refill WNL xrays Tylenol 1 gram PO reassess 07/19/18 13:43 Xrays as read by me: No acute fractures or dislocations present. I will d/c home with ortho referral. *DC/Admit/Observation/Transfer Diagnosis at time of Disposition: Hip pain, right, Right thigh pain - Discharge Dispostion Disposition: HOME Condition at time of disposition: Stable Decision to Admit order: No - Referrals Referrals: Irena Lin FNP [Primary Care Provider] - Cheo Howard DPM [Staff Physician] - Adonis Flaherty MD [Staff Physician] - Rajeev Zhou MD [Staff Physician] - - Patient Instructions Additional Instructions: Rest. Apply ice to affected areas as needed for pain. Keep right leg elevated to decrease pain. Take tylenol [id number] tablets every 6 hours as needed for pain. You have been given a referral for orthopedist. Please call for follow up if symptoms persist for 1 week. Return to ED for any new or worsening symptoms. - Post Discharge Activity
== END 2018-07-19 13:53 | disposition home or self-care (01) ==
LOC: JERFT 11:52
DX: M25.551 Pain in right hip (principal); M79.651 Pain in right thigh; E03.9 Hypothyroidism, unspecified; J45.909 Unspecified asthma, uncomplicated; W01.0XXA Fall on same level from slipping, tripping and stumbling without subsequent striking against object, initial encounter; Y93.89 Activity, other specified; Y92.89 Other specified places as the place of occurrence of the external cause
CPT/HCPCS: 73523-TC-FY; 73552-TC-RT-FY; 99281-25

== ENCOUNTER 2018-09-07 09:31 | Emergency (ER) | payer OTHER | END 2018-09-07 12:05 | disposition home or self-care (01) | LOC: JER 09:31 ==

== ENCOUNTER 2018-10-30 04:55 | Day surgery (SDC) | payer OTHER ==
[2018-10-26 14:14] VITALS: BMI 44.2
[2018-10-30] MEDS ORDERED: fentaNYL CITRATE 250 MCG/5 ML VIAL ONE (09:48)
[2018-10-30] MEDS ORDERED: ROCURONIUM BROMIDE 50 MG/5 ML SYRINGE ONE (09:48)
[2018-10-30] MEDS ORDERED: LIDOCAINE HCL/PF 2% SDV 5ML VIAL ONE (09:48)
[2018-10-30] MEDS ORDERED: PROPOFOL 20 ML ONE ×2 (09:49)
[2018-10-30] MEDS ORDERED: MIDAZOLAM HCL 2 MG/2 ML SINGLE DOSE VIAL ONE (09:49)
[2018-10-30] MEDS ORDERED: BUPIVACAINE HCL/PF 0.5% (5MG/ML) 10 ML VIAL ONE (09:55)
--- NOTE | 2018-10-30 10:03 | HP ---
Admitting History and Physical - Admission Chief Complaint: Desires Permanent Sterilization History of Present Illness: 28yo here for LSC bilateral salpingectomy for sterilization. 4 prior SVDs (one twin ) Adamant she wants no future pregnancies. Declined LARCs Notes low grade fever today, reports frequent UTIs History Source: Patient Limitations to Obtaining History: No Limitations - Past Medical History POLICE PATROL OFFICER: Yes: Peripheral Neuropathy (according to patient seconadry to hypothyroidism), Other (h/o rt side sciatica). No: Migraine Pulmonary: Yes: Asthma (last attack 2 weeks ago rx albuterol or ventolin inlaler, Flovent) Gastrointestinal: Yes: Constipation (rx senna & dulcolax), Hemorrhoids ...LMP Comment: On depo provera ...: No ...: 4 ...Para: 4 Heme/Onc: Yes: Anemia Psych: Yes: Other (h/ PTSD , follow with psychiatrist regularly) Endocrine: Yes: Hypothyroidism (rx synthyroid 50 mcg , did not keep follow up visits) - Past Surgical History Past Surgical History: Yes: Hernia Repair (umblical at age 18 yrs) - Smoking History Smoking history: Current every day smoker Have you smoked in the past 12 months: Yes Aproximately how many cigarettes per day: 2 - Alcohol/Substance Use Hx Alcohol Use: Yes (1/week) History of Substance Use: reports: None - Social History ADL: Support Services History of Recent Travel: No Home Medications - Allergies Allergies/Adverse Reactions: Allergies Allergy/AdvReac Type Severity Reaction Status Date / Time penicillin G Allergy Severe Difficulty Verified 10/26/18 13:55 Breathing kiwi Allergy Severe Uncoded 10/26/18 13:55 - Home Medications Home Medications: Ambulatory Orders Albuterol Sulfate Inhaler - [Ventolin HFA Inhaler -] 2 puff IN PRN 03/07/18 Levothyroxine [Synthroid -] 50 mcg PO DAILY 10/26/18 Medical Marijuana 1 cartridge PO PRN PRN 10/26/18 Physical Examination Vital Signs: Vital Signs Temperature 99.9 F H 10/30/18 09:04 Pulse Rate 75 10/30/18 09:04 Respiratory Rate 18 10/30/18 09:04 Blood Pressure 123/72 10/30/18 09:04 O2 Sat by Pulse Oximetry (%) 100 10/30/18 09:04 Constitutional: Yes: Well Nourished, No Distress, Calm Eyes: Yes: WNL, Conjunctiva Clear, EOM Intact HENT: Yes: WNL, Atraumatic, Normocephalic Neck: Yes: WNL, Supple, Trachea Midline Cardiovascular: Yes: WNL, Regular Rate and Rhythm Respiratory: Yes: WNL, Regular, CTA Bilaterally Gastrointestinal: Yes: WNL, Normal Bowel Sounds Musculoskeletal: Yes: WNL Extremities: Yes: WNL Edema: No Integumentary: Yes: WNL Neurological: Yes: WNL, Alert, Oriented ...Motor Strength: WNL Psychiatric: Yes: WNL Assessment/Plan 28yo here for permanent sterilization NPO, IVFs SCDs Nice Will send urine culture, treat for empiric UTI with Macrobid course Risk of procedure, including alternatives (LARCs), reviewed. Risk of bleeding, infection, injury, permanent nature of salpingectomy all reviewed with patient today and previously. All questions answered. Consents signed. Aravind Moon MD
[2018-10-30] MEDS ORDERED: DEXAMETHASONE SOD PHOSPHATE 4 MG/1 ML VIAL ONE (10:38)
[2018-10-30] MEDS ORDERED: BUPIVACAINE HCL/PF 0.5% (5 MG/ML) 30 ML VIAL IJ ONE (10:51)
[2018-10-30] MEDS ORDERED: KETOROLAC TROMETHAMINE 30 MG/1 ML VIAL ONE (10:56)
[2018-10-30] MEDS ORDERED: NEOSTIGMINE METHYLSULFATE 0.5 MG/ML - 10 ML MDV ONE (10:57)
[2018-10-30] MEDS ORDERED: GLYCOPYRROLATE 0.2 MG/1 ML VIAL ONE ×3 (10:57)
[2018-10-30] MEDS ORDERED: oxyCODONE HCL 5 MG TABLET PO PRN (11:24)
[2018-10-30] MEDS ORDERED: ONDANSETRON 4 MG/2 ML VIAL IVPUSH PRN (11:24)
--- NOTE | 2018-10-30 11:26 | OP ---
Operative Note - Note: Operative Date: 10/30/18 Pre-Operative Diagnosis: Desires Permanent Sterilization Operation: Laparoscopic Bialteral Salpingectomy Findings: Normal uterus, normal tubes and ovaries Post-Operative Diagnosis: Same as Pre-op Surgeon: Vivi Moon White Metal Corrosion Proofer: Julio Farris Anesthesia: General Specimens Removed: Bilateral Fallopian Tubes Estimated Blood Loss (mls): 15 Drains, Volume Out (mls): 100 (clear urine) Operative Report Dictated: Yes
--- NOTE | 2018-10-30 12:24 | SURG ---
Surgery Beef Pusher Note Beef Pusher: Julio Farris MD Date of Service: 10/30/18 Diagnosis: elective sterilization Procedure: bilateral laparoscopic salpingectomy I was present for the entirety of the operative procedure. For further detail, please refer to operative report.
--- NOTE | 2018-10-30 13:32 | OP ---
DATE OF OPERATION: 10/30/2018 PREOPERATIVE DIAGNOSIS: Desires permanent sterilization. POSTOPERATIVE DIAGNOSIS: Desires permanent sterilization. PROCEDURE: Laparoscopic bilateral salpingectomy. ANESTHESIA: General. SURGEON: Vivi Moon MD HEAD SAWYER: Julio Farris MD IV FLUIDS: 1000 mL. ESTIMATED BLOOD LOSS: 15 mL. URINE OUTPUT: 100 mL of clear urine at the end of the procedure. FINDINGS: Normal tubes and ovaries bilaterally, normal uterus. COMPLICATIONS: None. CONDITION: Stable to recovery room. NATURE OF PROCEDURE: After the appropriate consents were signed, patient was taken to the operating room. General anesthesia was administered. She was placed in dorsal lithotomy position. The abdomen was prepped and draped in normal sterile fashion. A sterile Nice catheter was inserted into the bladder, with a sample of the urine being taken for urine culture, given the patient preoperatively had a temperature of 99.9 and there were concerns for a possible UTI. Marcaine was then injected into the umbilicus after the timeout was performed. A 5-mm stab incision was made to accommodate the 0-degree laparoscope, which was introduced under direct visualization. Correct placement was confirmed. The abdomen was then insufflated with gas. The patient was placed in Trendelenburg position. Marcaine was injected into the left and right lower quadrants to accommodate 5-mm ports, which were then introduced individually under direct visualization without difficulty. Abdomen was inspected and noted to be normal. The uterus was normal in contour and size. Both fallopian tubes were noted to be normal. Both ovaries also appeared normal in size, with a small follicular cyst on the patient's left ovary. Using the LigaSure device and subsequent bites, the fallopian tube was ligated on the mesosalpinx upon its insertion to the uterus, at which point it was transected with the LigaSure device and removed through the left lower quadrant port. The bite sites were noted to be hemostatic. Attention was then paid of the right fallopian tube, which was taken down in a similar manner. Bite sites were all noted to be hemostatic. The right fallopian tube was also removed through the left lower quadrant port. The abdomen was then deflated of gas. The sites were all noted to still be hemostatic. The right lower quadrant and left lower quadrant ports were then removed. The umbilical port was then also removed. The incisions were all closed with a 4-0 Biosyn. Appropriate bandages were placed. The Nice catheter was removed. The patient was taken from the operating room to the recovery area in stable condition. MD MARISOL GRIFFIN/[id number]
[2018-10-30 13:49] VITALS: BP 129/74; PULSE 79; TEMP 98.5
--- NOTE | 2018-11-01 17:49 | PATH ---
Surgical Pathology Report Patient Name: CODY CRAWLEY [facility]. Rec. #: [id number] /Age/Gender: 1990 (Age: 28) / F Account: [id number] Location: [facility] SURGICAL Taken: 10/31/2018 Received: 10/31/2018 Reported: 11/01/2018 Physicians: Vivi Moon Specimen(s) Received A: LEFT FALLOPIAN TUBE B: RIGHT FALLOPIAN TUBE Clinical History Desired sterility Final Diagnosis A. FALLOPIAN TUBE, LEFT, SALPINGECTOMY: FALLOPIAN TUBE WITH PARATUBAL CYST (INCLUDING FIMBRIATED END AND FULL LUMINAL PORTION). B. FALLOPIAN TUBE, RIGHT, SALPINGECTOMY: UNREMARKABLE FALLOPIAN TUBE (INCLUDING FIMBRIATED END AND FULL LUMINAL PORTION). Electronically Signed Raysa Troy M.D. Gross Description A. Received in formalin labeled "left tube," is a 4 cm in length fimbriated fallopian tube. The outer surface is chavarria augustin and smooth with a 0.5 cm in greatest dimension pedunculated paratubal cyst. Sectioning reveals an unremarkable lumen. Tallow Maker sections are submitted in 2 cassettes as follows: 1-fimbria; 2-cross sections of fallopian tube with paratubal cyst. B. Received in formalin labeled "right tube," is a 5 cm in length fimbriated fallopian tube. The outer surface is chavarria augustin and smooth. Sectioning reveals an unremarkable lumen. Tallow Maker sections are submitted in 2 cassettes as follows: 1-fimbria; 2-cross sections of fallopian tube. /10/31/2018 [facility]10/31/2018
== END 2018-10-30 14:15 | disposition home or self-care (01) ==
LOC: JASU-SURG 04:55
PROVIDERS: ATTEND Obstetrics & Gynecology
PROC: 0U574ZZ Destruction of Bilateral Fallopian Tubes, Percutaneous Endoscopic Approach (ICD-10-PCS; principal; 2018-10-30 10:00)
DX: Z30.2 Encounter for sterilization (principal)
CPT/HCPCS: 84703; 87086; 88302-TC; 94760

== ENCOUNTER 2019-04-20 10:30 | Emergency (ER) | payer OTHER ==
[2019-04-20 10:42] VITALS: BP 119/82; PULSE 82; TEMP 98.7; BMI 35.4
[2019-04-20] MEDS ORDERED: DEXAMETHASONE LIQUID 0.5 MG/5 ML PO ONE (11:39)
[2019-04-20] MEDS ORDERED: ALBUTEROL SO4 2.5/IPRATROPIUM 0.5 INH SOL 3 ML VIAL.NEB. NEB SCH (11:45)
--- NOTE | 2019-04-20 11:50 | PDOC ---
History of Present Illness - General Chief Complaint: Cold Symptoms Stated Complaint: SOB Time Seen by Provider: 04/20/19 10:54 History Source: Patient Exam Limitations: No Limitations - History of Present Illness Initial Comments: 04/20/19 11:45 HISTORY OF PRESENT ILLNESS: 28-year-old woman who presents emergency department for evaluation of cough for 3 weeks with intermittent fevers and sore throat. She states her children have been diagnosed with influenza and have all now fully recovered. Her symptoms have persisted over the 3 weeks. She reports intermittent chest tightness which she attributes to her asthma. She denies any shortness of breath, dizziness, lightheadedness, abdominal pain, nausea or vomiting. No recent travel. PAST MEDICAL HISTORY: Asthma (no history of intubation), anemia SURGICAL HISTORY: Denies ALLERGIES: Penicillin REVIEW OF SYSTEMS General/Constitutional: Denies fever or chills. Denies weakness, weight change. HEENT: Denies change in vision. Denies ear pain or discharge. Denies sore throat. Cardiovascular: Denies chest pain or shortness of breath. Respiratory: See HPI Gastrointestinal: Denies nausea, vomiting, diarrhea or constipation. Denies rectal bleeding. Genitourinary: Denies dysuria, frequency, or change in urination. Musculoskeletal: Denies joint or muscle swelling or pain. Denies neck or back pain. Skin and breasts: Denies rash or easy bruising. Neurologic: Denies headache, vertigo, loss of consciousness, or loss of sensation. Psychiatric: Denies depression or anxiety. Endocrine: Denies increased thirst. Denies abnormal weight change. Hematologic/Lymphatic: Denies anemia, easy bleeding, or history of blood clots. Allergic/Immunologic: Denies hives or skin allergy. Denies latex allergy. PHYSICAL EXAM General Appearance: Well-appearing, appropriately dressed. No apparent distress , no intoxication. HEENT: EOMI, PERRLA, normal ENT inspection, normal voice, TMs normal. No conjunctival pallor. No photophobia, scleral icterus. Oropharynx mildly erythematous without tonsillar swelling, exudates or lesions present. Neck: Supple. Trachea midline. No tenderness, rigidity, carotid bruit, stridor , lymphadenopathy, or thyromegaly. Respiratory/Chest: Lungs CTAB. No shortness of breath, respiratory distress, accessory muscle use. No crackles, rales, rhonchi, stridor, wheezing, dullness. Midsternal tenderness with palpation. Cardiovascular: RRR. S1, S2. No JVD, murmur, bradycardia, tachycardia. Integumentary: Appropriate color, dry, warm. No cyanosis, erythema, jaundice or rash Neurologic: brush hand II-XII intact. Fully oriented, alert. Appropriate mood/affect. Motor strength 5/5. No appreciable EOM palsy, facial droop or sensory deficit. 04/20/19 11:49 Past History - Past Medical History Allergies/Adverse Reactions: Allergies Allergy/AdvReac Type Severity Reaction Status Date / Time penicillin G Allergy Severe Difficulty Verified 04/20/19 10:39 Breathing kiwi Allergy Severe Uncoded 04/20/19 10:39 Home Medications: Ambulatory Orders Levothyroxine [Synthroid -] 50 mcg PO DAILY 10/26/18 Medical Marijuana 1 cartridge PO PRN PRN 10/26/18 Ibuprofen [Motrin -] 600 mg PO QID PRN #28 tablet 10/30/18 Nitrofurantoin Monohyd/M-Cryst [Macrobid -] 100 mg PO BID #14 capsule 10/30/18 Albuterol 0.083% Nebulizer Dianne [Ventolin 0.083% Nebulizer Soln -] 1 neb NEB Q4H #60 vial 04/20/19 Albuterol Sulfate Inhaler - [Ventolin HFA Inhaler -] 2 puff IN PRN PRN #1 inhaler 04/20/19 Anemia: Yes Asthma: Yes Cancer: No Cardiac Disorders: No COPD: No Dementia: (pre diabetic) Diabetes: No HTN: No Seizures: No Thyroid Disease: Yes (hypothyroid) - Surgical History Abdominal Surgery: Yes (umbilical hernia) Neurologic Surgery: No - Reproductive History (#): 5 Para: 4 - Immunization History Immunization Up to Date: Yes - Psycho Social/Smoking Cessation Hx Smoking History: Current every day smoker Have you smoked in the past 12 months: Yes Number of Cigarettes Smoked Daily: 2 Information on smoking cessation initiated: No 'Breaking Loose' booklet given: 10/26/18 Hx Alcohol Use: No Drug/Substance Use Hx: No Substance Use Type: Marijuana Hx Substance Use Treatment: No *Physical Exam - Vital Signs Last Vital Signs Temp Pulse Resp BP Pulse Ox 98.7 F 82 18 119/82 98 04/20/19 10:39 04/20/19 10:39 04/20/19 10:39 04/20/19 10:39 04/20/19 10:39 ED Treatment Course - RADIOLOGY Radiology Studies Ordered: Category Date Time Status CHEST PA & LAT [RAD] Stat Radiology 04/20/19 11:39 Ordered Medical Decision Making - Medical Decision Making 04/20/19 11:51 A/P: 28-year-old woman dry cough for 3 weeks, nasal congestion and sore throat Most likely upper respiratory infection but given patient's history of asthma I will obtain a chest x-ray to rule out sequela of viral infection. DuoNeb's x4 Decadron 10 mg orally now Chest x-ray Reassess 04/20/19 13:03 Chest x-ray as read by me: Sonja childers. Cardiac silhouette is within normal limits. Lung ba clear without infiltrate or consolidation noted. Patient reports her breathing is a little bit easier after receiving nebulizer treatments. Repeat lung exam reveals clear lungs in all ba. Discharge home with prescription for nebulizer treatments and albuterol MDI. I discussed the physical exam findings, ancillary test results and final diagnoses with the patient. I answered all of the patient's questions. The patient was satisfied with the care received and felt comfortable with the discharge plan and treatment plan. The patient will call their primary care physician within 24 hours to arrange follow-up and will return to the Emergency Department with any new, persistent or worsening symptoms. Discharge - Discharge Information Problems reviewed: Yes Clinical Impression/Diagnosis: URI (upper respiratory infection) Qualifiers: URI type: unspecified viral URI Qualified Code(s): J06.9 - Acute upper respiratory infection, unspecified Condition: Stable Disposition: HOME - Admission No - Additional Discharge Information Prescriptions: Albuterol 0.083% Nebulizer Dianne [Ventolin 0.083% Nebulizer Soln -] 1 neb NEB Q4H #60 vial Albuterol Sulfate Inhaler - [Ventolin HFA Inhaler -] 2 puff IN PRN PRN #1 inhaler PRN Reason: Short Of Breath/Wheezing - Follow up/Referral Referrals: Raysa Dejesus MD [Primary Care Provider] - Angel Luis Acosta MD [Staff Physician] - - Patient Discharge Instructions Additional Instructions: Rest, drink lots of fluids: Teas, water, soups, Pedialyte Saltwater gargles Steamy showers/seem to face break up mucus Avoid contact with others until fevers and cough resolved Lots of handwashing and good hygiene Continue [id number] medications for symptomatic relief Tylenol or Motrin for fever and pain Followup with private physician in one to 2 days as needed Return to emergency department for worsened symptoms, fevers, dehydration - Post Discharge Activity
[2019-04-20] MEDS ORDERED: DEXAMETHASONE SOD PHOSPHATE 10 MG/1 ML VIAL ONE (11:51)
[2019-04-20] MEDS ORDERED: ALBUTEROL SO4 2.5/IPRATROPIUM 0.5 INH SOL 3 ML VIAL.NEB. NEB ONE (11:52)
== END 2019-04-20 13:10 | disposition home or self-care (01) ==
LOC: JERFT 10:30
PROC: 3E0F7GC Introduction of Other Therapeutic Substance into Respiratory Tract, Via Natural or Artificial Opening (ICD-10-PCS; principal; 2019-04-20)
DX: J06.9 Acute upper respiratory infection, unspecified (principal); Z88.0 Allergy status to penicillin
CPT/HCPCS: 71046-TC-FY; 94640; 99281-25

== ENCOUNTER 2023-01-27 05:13 | Day surgery (SDC) | payer OTHER ==
[2023-01-25 13:59] VITALS: BMI 43.0
[2023-01-27 13:33] VITALS: TEMP 97.3
[2023-01-27 13:35] VITALS: RESP 20
[2023-01-27 13:38] VITALS: BP 159/80; PULSE 75
== END 2023-01-27 12:55 | disposition home or self-care (01) ==
LOC: JASU-ENDO 05:13
PROVIDERS: ATTEND Internal Medicine Gastroenterology
PROC: 0DB68ZX Excision of Stomach, Via Natural or Artificial Opening Endoscopic, Diagnostic (ICD-10-PCS; 2023-01-27)
PROC: 0DB78ZX Excision of Stomach, Pylorus, Via Natural or Artificial Opening Endoscopic, Diagnostic (ICD-10-PCS; 2023-01-27)
PROC: 0DBM8ZX Excision of Descending Colon, Via Natural or Artificial Opening Endoscopic, Diagnostic (ICD-10-PCS; principal; 2023-01-27 12:00)
DX: D12.4 Benign neoplasm of descending colon (principal); K29.50 Unspecified chronic gastritis without bleeding; I10 Essential (primary) hypertension
CPT/HCPCS: 81025; 88305-TC; 88342-TC

== ENCOUNTER 2023-03-14 17:27 | Emergency (ER) | payer OTHER ==
[2023-03-14 18:24] VITALS: BP 144/80; PULSE 100; RESP 18; TEMP 97.7; BMI 37.8
== END 2023-03-14 18:54 | disposition left against medical advice (07) ==
LOC: JER 17:27 → JERFT 17:27
DX: N93.9 Abnormal uterine and vaginal bleeding, unspecified (principal)
CPT/HCPCS: 99281-25

== ENCOUNTER 2023-12-20 11:39 | Emergency (ER) | payer OTHER ==
[2023-12-20 11:50] VITALS: BP 116/73; PULSE 73; RESP 16; TEMP 99.2; BMI 43.0
[2023-12-20] MEDS ORDERED: KETOROLAC TROMETHAMINE 30 MG/1 ML VIAL ONE (12:52)
[2023-12-20] MEDS: KETOROLAC TROMETHAMINE 30 MG/1 ML VIAL IM ONE (12:57)
[2023-12-20 14:48] LABS: HIV INTERPRETATION NEGATIVE (NEGATIVE)
== END 2023-12-20 13:50 | disposition home or self-care (01) ==
LOC: JERFT 11:39
PROC: 3E0133Z Introduction of Anti-inflammatory into Subcutaneous Tissue, Percutaneous Approach (ICD-10-PCS; principal; 2023-12-20)
DX: K08.89 Other specified disorders of teeth and supporting structures (principal)
CPT/HCPCS: 36415; 86803; 87389; 96372; 99284-25